=== PATIENT | male | born 2000 | race Caucasian/White ===

== ENCOUNTER 2018-01-29 18:08 | Emergency (ER) | payer OTHER ==
[~2018-01-29] VITALS: Ht 182.9 cm; Wt 95.3 kg
[2018-01-29 18:39] VITALS: BP 134/69
--- NOTE | 2018-01-29 18:44 | ED GENERAL ADULT ---
See Addendum History of Present Illness General Chief Complaint: Laceration Procedure Stated Complaint: LAC TO HEAD S/P FALL Source: patient Exam Limitations: no limitations Vital Signs & Intake/Output Vital Signs & Intake/Output Vital Signs Date Time Temp Pulse Resp B/P B/P Pulse O2 O2 Flow FiO2 Mean Ox Delivery Rate 01/299 98.2 93 18 134/69 98 Room Air Allergies Coded Allergies: No Known Allergies (01/29/18) Triage Note: 17 YO MALE TO TRIAGE FOR LACERATION TO L EYEBROW, STATES HE TRIPPED AT THE GYM HITTING HIS HEAD ON A WEIGHT. DENIES LOC. NOTED WITH LAC TO EYEBROW, BLEEDING CONTROLLED. ICE PACK APPLIED. DENIES PAIN. PT UTD WITH TETANUS. Triage Nurses Notes Reviewed? yes Onset: Abrupt Duration: hour(s): Timing: recent history HPI: 01/29/18 7:11 PM 17-year-old male presents to the emergency department complaining of head injury with laceration to the left supraorbital area. The patient states that he was working out at the gym and tripped over his shoelace and hit the left side of his head on a steel pipe. He denies headache, nausea, vomiting, neck pain or other injuries. He has a one-inch laceration over the left orbit, along the eyebrow. Past History Travel History Traveled to [place] past 21 day No Medical History Any Pertinent Medical History? 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 No Review of Systems Review of Systems Constitutional: Reports: no symptoms. EENTM: Denies: visual changes. Respiratory: Reports: no symptoms. Cardiovascular: Reports: no symptoms. GI: Reports: no symptoms. Genitourinary: Reports: no symptoms. Musculoskeletal: Reports: no symptoms. Skin: Reports: see HPI. Neurological/Psychological: Denies: headache. Hematologic/Endocrine: Reports: no symptoms. Immunologic/Allergic: Reports: no symptoms. Physical Exam Physical Exam General Appearance: well developed/nourished, alert, awake, anxious, mild distress Head: normal appearance, active bleeding Eyes: Bilateral: normal appearance, PERRL, EOMI. Ears, Nose, Throat: normal pharynx Neck: normal inspection, supple, full range of motion Respiratory: normal breath sounds, chest non-tender, no respiratory distress Cardiovascular: regular rate/rhythm Peripheral Pulses: 4+ radial (R), 4+ radial (L) Gastrointestinal: non-tender Back: normal range of motion Extremities: no edema Neurologic/Psych: no motor/sensory deficits, awake, alert, oriented x 3 Skin: 1" LACERATION, LEFT SUPRAOBITAL AREA Core Measures ACS in differential dx? No CVA/TIA Diagnosis: No Sepsis Present: No Sepsis Focused Exam Completed? No Progress Differential Diagnoses I considered the following diagnoses in my evaluation of the patient: [Head injury, concussion, laceration, foreign body] Plan of Care: Current Medications Sig/Mary Start time Last Medication Dose Stop Time Status Admin Lidocaine 5 ML ONCE ONE 01/29 1915 UNVr (Lidocaine 1%) 01/30 1916 Laboratory Tests 01/29/18 1843: Lidocaine Cancelled Initial ED EKG: none Departure Departure Disposition: STILL A PATIENT Condition: Stable Clinical Impression Primary Impression: Laceration Secondary Impressions: Head injury Departure Forms: Customer Survey General Discharge Information Critical Care Note Critical Care Note Critical Care Time: non-applicable
== END 2018-01-29 19:19 ==
LOC: ERH 18:08
DX: S01.112A Laceration without foreign body of left eyelid and periocular area, initial encounter (principal); S09.90XA Unspecified injury of head, initial encounter; W18.09XA Striking against other object with subsequent fall, initial encounter; Y92.39 Other specified sports and athletic area as the place of occurrence of the external cause; Y93.9 Activity, unspecified

== ENCOUNTER 2018-02-05 10:38 | Emergency (ER) | payer OTHER ==
[~2018-02-05] VITALS: Ht 182.9 cm; Wt 95.3 kg
--- NOTE | 2018-02-05 10:54 | ED GENERAL ADULT ---
See Addendum History of Present Illness General Chief Complaint: Suture Removal/Wound Recheck Stated Complaint: TO HAVE STITCHES REMOVED FROM LEFT EYEBROW Source: patient Exam Limitations: no limitations Vital Signs & Intake/Output Vital Signs & Intake/Output Vital Signs Date Time Temp Pulse Resp B/P B/P Pulse O2 O2 Flow FiO2 Mean Ox Delivery Rate 02/05 1058 98.5 67 20 105/69 97 Room Air Allergies Coded Allergies: No Known Allergies (01/29/18) Triage Nurses Notes Reviewed? yes Onset: Abrupt Duration: week(s): Timing: recent history HPI: 02/05/18 10:53 AM 17-year-old male presents to the emergency department for suture removal. He has no complaints no headache. Past History Travel History Traveled to [place] past 21 day No Medical History Any Pertinent Medical History? 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 No Review of Systems Review of Systems Constitutional: Reports: no symptoms. EENTM: Reports: no symptoms. Respiratory: Reports: no symptoms. Cardiovascular: Reports: no symptoms. GI: Reports: no symptoms. Genitourinary: Reports: no symptoms. Musculoskeletal: Reports: no symptoms. Skin: Reports: see HPI. Neurological/Psychological: Reports: no symptoms. Hematologic/Endocrine: Reports: no symptoms. Immunologic/Allergic: Reports: no symptoms. Physical Exam Physical Exam General Appearance: well developed/nourished, no apparent distress, alert, awake Head: SUTURED LACERATION LEFT SUPRAORBITAL AREA Eyes: Bilateral: normal appearance, PERRL, EOMI. Ears, Nose, Throat: normal ENT inspection Neck: normal inspection Respiratory: no respiratory distress Cardiovascular: regular rate/rhythm Back: normal range of motion Extremities: normal inspection Neurologic/Psych: no motor/sensory deficits, awake, alert, oriented x 3 Skin: SUTURED LACERATION LEFT SUPRAORBITAL AREA Core Measures ACS in differential dx? No CVA/TIA Diagnosis: No Sepsis Present: No Sepsis Focused Exam Completed? No Progress Differential Diagnoses I considered the following diagnoses in my evaluation of the patient: [ Concussion, wound infection, foreign body] Plan of Care: Follow-up as needed Initial ED EKG: none Departure Departure Disposition: HOME OR SELF CARE Condition: Stable Clinical Impression Primary Impression: Visit for suture removal Referrals: Dionisio ENGLISH,Elio Pacheco (PCP/Family) Departure Forms: Customer Survey General Discharge Information Comments Procedure Under clean technique 5 sutures removed There were no complications He was told to avoid the sun and keep the area clean He will follow-up as needed Critical Care Note Critical Care Note Critical Care Time: non-applicable
[2018-02-05 10:58] VITALS: BP 105/69
== END 2018-02-05 11:09 ==
LOC: ERH 10:38
DX: Z48.02 Encounter for removal of sutures (principal)